=== PATIENT | male | born 1940 | race Caucasian/White ===

== ENCOUNTER 2021-07-10 12:51 | Day surgery (SDC) | payer MEDICARE, OTHER, SELFPAY ==
--- NOTE | 2021-07-10 13:00 | US_ITS ---
PROCEDURE: US KIDNEY CLINICAL INDICATION: N28.9 - Disorder of kidney and ureter, unspecified COMPARISON: No exams were available for comparison FINDINGS: The right kidney raises the 0.5 x 5.1 x 6.0 cm thinnest made volume of 135.93 mm. The left kidney measures 0.0 x 5.1 x 4.5 cm with estimated volume of 130.65 mm. There is mild bilateral renal cortical thinning. There is no hydronephrosis of either kidney. There is symmetrical vascularity to each kidney. There is a tiny benign-appearing exophytic cyst lower pole left measuring 1.0 by 2.3 x 1.1 cm. The spleen appears normal. A single image of the gallbladder shows no obvious abnormality IMPRESSION: Mild bilateral renal cortical thinning with no obstructive uropathy of either kidney Dictated by: Dr. Александр Hickey MD 07/10/2021 14:40 Dr. Александр Hickey MD in [place] 07/10/2021 14:40
--- NOTE | 2021-07-10 13:00 | US_ITS ---
PROCEDURE: US URINARY BLADDER CLINICAL INDICATION: difficulty urinating COMPARISON: No exams were available for comparison FINDINGS: The filled urinary bladder measures 7.7 x 6.5 x 6.5 cm with an estimated volume of 172 mL. The prostate is moderately enlarged measuring 4.2 by 3.2 x 4.5 cm shows prominent indentation and or mass-effect at the base of the urinary bladder. The postvoid bladder measures 6.6 x 4.7 x 5.9 cm with estimated volume of 95.2 mL. IMPRESSION: Moderately enlarged prostate protruding into the base of the urinary bladder with moderately large postvoid residual Dictated by: Dr. Александр Hickey MD 07/10/2021 14:43 Dr. Александр Hickey MD in [place] 07/10/2021 14:43
[2021-07-10 13:13] VITALS: BMI 27.9
--- NOTE | 2021-07-10 13:22 | CA_ITS ---
APPROVED REPORT EXAM: Comprehensive 2D, Doppler, and color-flow Echocardiogram Pharmaceutical Representative: Debi Garg RT(R) Ht: 5 ft 10 in Wt: 194lbs BSA: 2.06 BP: 131/68 mmHg Indications: syncope, HTN, FATIMA, stage III kidney disease 2D Dimensions Aortic Root 1.87 cm M: 3.1 - 3.7 LA Volume 89.90 mL LA Volume Index 43.64 mL/m2 (M/F) 16-34 M-Mode Dimensions RVDd 3.90 cm (0.9-2.6) LA Diam 5.03 cm (1.9-4.0) LVDd 4.24 cm (3.5-5.7) Ao Diam 2.81 cm (2.0-3.7) LVDs 3.39 cm (3.5-5.7) IVSd 1.10 cm (0.6-1.1) PWd 1.15 cm (0.6-1.1) EF (Teich) 41.40% FS 20.00% EDV (Teich) 80.40 mL ESV (Teich) 47.10 mL LV Diastology E Decel Time 260.00 (160-240 msec) E/A Ratio 1.1 MED E' 5.80 (< 7 cm/sec) E'/MED E' Ratio 14.52 (>14) LAT E' 8.00 (<10 cm/sec) E/LAT E' Ratio 10.53 (>14) Mitral Valve MV E Max Sawyer. 84.00 (40-130 cm/s) MV A Velocity 76.00 (40-130 cm/s) E/A Ratio 1.12 MV Decel. Time 260.00 (160-240 ms) MV PHT 76.00 ms Left Ventricle Left atrium is mildly enlarged, left ventricle is normal size, mild concentric left ventricular hypertrophy, visually estimated ejection fraction 55% with no regional wall motion abnormality, grade 1 diastolic dysfunction seen without tissue Doppler evidence of raise left atrial pressure. Right Ventricle Right atrium and right ventricle are normal size and contractility. Aortic Valve Aortic valve is thickened and calcified without Doppler evidence of aortic stenosis or aortic insufficiency. Mitral Valve Mitral valve leaflets are minimally thickened, there is mild mitral regurgitation. Tricuspid Valve Tricuspid valve grossly normal, there is mild tricuspid regurgitation, tricuspid regurgitation jet velocity is inadequate for calculation of the right ventricular systolic pressure. Pulmonic Valve Pulmonic valve is poorly visualized. Great Vessels Aortic root is normal size. Inferior vena cava is not well visualized. Pericardium No significant pericardial effusion noted. Conclusion 1. Mildly enlarged left atrium, normal left ventricular size, mild concentric left ventricular hypertrophy, visually estimated ejection fraction 55% with no regional wall motion abnormality, grade 1 diastolic dysfunction seen without tissue Doppler evidence of raise left atrial pressure. 2. Mild mitral and tricuspid regurgitation. 3. No significant pericardial effusion noted. Electronically signed by : Tevin Peres MD 07/10/2021 19:36:10
[2021-07-10 14:20] VITALS: BP 134/74; PULSE 67; PULSE 70; RESP 18; TEMP 36.7; O2SAT 98
[2021-07-10 14:28] VITALS: BP 125/78; PULSE 76; RESP 18; O2SAT 98
[2021-07-10 14:30] VITALS: BP 148/81; PULSE 80; RESP 17; O2SAT 98
--- NOTE | 2021-07-10 14:34 | P.PCN_ITS ---
[facility] Loop Recorder Date: 07/10/21 Time: 14:34 Procedure Performed:: Implantation of loop recorder Indication:: Syncope Technique:: Patient was brought to the cardiac Automobile Radiator Mechanic. After informed consent obtained, 1% lidocaine with epinephrine was used to anesthetize the site along the left anterior aspect of the chest near the sternal border. Using the preformed scalpel, an incision was made and using the supplied preloaded apparatus, the lo op recorder was placed subcutaneously without difficulty. Following the deployment of the loop recorder interrogation of the device was performed to ensure appropriate voltage was being detected. Once this was verified, Steri- Strips were placed over the incision and the patient was prepped to discharge home. Patient tolerated the procedure well with minimal discomfort. Impression:: Successful implantation of loop recorder Serial Number:: [employer] model M301 LUX-DX Serial #[id number] Plan:: Routine postop care Follow-up in our office in 1 to 2 weeks.
== END 2021-07-10 14:38 | disposition home or self-care (01) ==
LOC: RAD 12:53
PROVIDERS: PCP Family Medicine; Visit Provider Internal Medicine
DX: R39.198 Other difficulties with micturition; R55 Syncope and collapse; N18.32 Chronic kidney disease, stage 3b; I10 Essential (primary) hypertension; Z79.899 Other long term (current) drug therapy
CPT/HCPCS: 33285; 76770; 76857; 93306

== ENCOUNTER → 2021-07-16 06:29 | Outpatient (CLI) | payer MEDICARE, OTHER, SELFPAY ==
--- NOTE | 2021-07-16 | CA_ITS ---
APPROVED REPORT Exam: Pharmacologic Technologist: Yoon Cramer, Ht: 5 ft 10 in Wt: 194 lbs BSA: 2.06 m2 HR: 68 bpm BP: 172/101 mmHg Indications: Syncope Medical History Medications: Asa, Labatlol, Levothyroxine, Silodosin Allergies: NKA Cardiac Risk Factors: HTN Stress Test Details Test: LEXISCAN HR Resting HR: 70 bpm Max Heart Rate (APMHR): 138.305121 bpm Max HR Achieved: 96 bpm Target HR (85% APMHR): 117.264201 bpm % of APMHR: 69.57 Recovery HR: 82 bpm BP Resting BP: 172/101 mmHg Max BP: 172/101 mmHg Recovery BP: 148.0/79.0 mmHg ECG Resting ECG: NSR, frequent PVC's & ventricular couplets, NS ST abns laterally Clinical Exercise duration: 04:05 min Highest Stage Achieved: Exercise capacity: 1.0 METs Stress ECG Conclusion Brief SOA, mild headache, and lightheadedness during peak infusion which resolved during recovery. No chest pain. Frequent PVC's , although their frequency seemed to diminish somewhat with increased HR from Lexiscan. Mild exaggeration of baseline abns in leads V5 & V6. Unremarkable Lexiscan stress. Images reported separately. Electronically signed by : Tevin Peres MD 07/16/2021 14:06:16
--- NOTE | 2021-07-16 06:30 | NM_ITS ---
APPROVED REPORT Exam: Nuclear Stress Test Indication: short of breath..syncope..fatique Patient Location: Outpatient Stress Tech: Yoon Cramer MT Tech:VAZQUEZ Roper RT(R)(N) Ht: 5 ft 10 in Wt: 195 lbs HR: 68 bpm BP: 172/101 mmHg BSA: 2.07 m2 BMI: 27.9 History: short of breath..syncope..fatique Procedure: Patient received a 0.4 mg of intravenous Lexiscan, resting heart rate 68 bpm, resting blood pressure 172/101 mmHg, with Lexiscan maximum heart rate achived was 87 bpm which is Less than 85 % of the maximum predicted heart rate and blood pressure was 159/73 mmHg. With Lexiscan, patient denied any complaint of chest pain. Electrocardiogram Resting electrocardiogram showed sinus rhythm, with Lexiscan there is less than 1.[address] segment depression noted from the baseline EKG. The EKG portion of the Lexiscan Myoview is nondiagnostic. Cardiac Stress and Resting SPECT Images: Cardiac Stress and Resting SPECT images were obtained using technetium 99m Myoview 30.8 mCi stress and 10.47 mCi at rest. Gated SPECT for analysis of segmental wall motion and calculation of the ejection fraction also done. Prone images were also obtained. Cardiac stress and resting SPECT images show decreased tracer activity in the anterolateral, inferior apical and inferoseptal wall which improves on the resting images suggestive of reversible ischemia, computer derived ejection fraction is 39% with left ventricular global hypokinesis, right ventricle is normal size and contractility. Conclusion: 1. The EKG portion of the Lexiscan Myoview is nondiagnostic. 2. Scintigraphic evidence of reversible ischemia involving the anterolateral, inferior apical and inferoseptal wall, computer derived ejection fraction 39% with left ventricular global hypokinesis, right ventricle is normal size and contractility. 3. Abnormal Lexiscan Myoview study. Electronically signed by : Tevin Peres MD 07/16/2021 14:16:17
== END ==
PROVIDERS: PCP Family Medicine; Visit Provider Internal Medicine
DX: R06.00 Dyspnea, unspecified (principal); R55 Syncope and collapse
CPT/HCPCS: 78452; 93017; A9502; J2785

== ENCOUNTER → 2021-07-23 11:09 | Outpatient (CLI) | payer MEDICARE, OTHER, SELFPAY ==
[2021-07-23 12:14] LABS: Prostate Specific Ag Screen 3.4 ng/ml (0.0-4.0)
== END ==
PROVIDERS: Visit Provider Urology
DX: Z12.5 Encounter for screening for malignant neoplasm of prostate (principal)
CPT/HCPCS: 36415; G0103

== ENCOUNTER 2021-07-27 08:25 | Day surgery (SDC) | payer MEDICARE, OTHER, SELFPAY ==
[2021-07-27] VITALS (12 sets, daily range): BP systolic 148–174; BP diastolic 78–97; PULSE 48–66; RESP 18–20; TEMP 36.6–36.7; O2SAT 96–100; BMI 28.1
--- NOTE | 2021-07-27 07:09 | IR_ITS ---
APPROVED REPORT Patient Location: Outpatient Information Security Risk Analyst: VAZQUEZ Daniels RT (R) PROCEDURES Left heart catheterization Left ventriculogram Selective coronary angiogram Drug-eluting stent deployment to the circumflex artery Informed consent was obtained prior to the procedure. COMPLICATIONS None Estimated Blood Loss: Less than 10 mls TECHNIQUE One percent lidocaine used to anesthetize the right anterior aspect of the wrist. The right radial artery was accessed via the Seldinger technique. A 6 Czech sheath was placed in the right radial artery. 2.5 mg of verapamil, 800 mcg of nitroglycerin, 1mg Lidocaine and 5000 U Heparin were given through the arterial sheath. The trap catheter was also used to perform left heart catheterization, left ventriculogram and selective coronary angiogram. At the end the diagnostic angiogram the Poppa catheter was used to intubate the left main artery. Therapeutic heparin was administered giving a therapeutic ACT and a Choice PT extra-support wire was placed distally in the circumflex artery. A 2.5 x 18 mm resolute Ramirez stent was deployed at 16 timur reducing the critical stenosis to 0%. RILEY-3 flow was present before and after the procedure. At the end of the procedure the apparatus was removed the sheath was removed good hemostasis was achieved using TR banding patient was transferred to the postop putting in stable condition ANGIOGRAPHIC RESULTS The left main artery Normal The left anterior descending artery Has proximal and mid vessel diffuse 20 to 30% stenoses The circumflex artery Is codominant and gives rise to 2 large obtuse marginal arteries. The second obtuse marginal artery has a proximal concentric 90% stenosis The right coronary artery Is codominant and has a proximal concentric 30% stenosis The JAVED ventriculogram reveals Normal 65% The left ventricular end-diastolic pressure 15 mmHg IMPRESSION Severe single-vessel coronary disease as described above Successful stenting of a large second obtuse marginal artery severe disease reduced to 0% with 1 drug-eluting stent Normal ejection fraction Mildly elevated LVEDP PLAN 1. Dual antiplatelet therapy 2. Risk factor modification 3. LDL less than 55 4. Cardiac rehabilitation 5. Avoidance of tobacco products Electronically signed by : Deshawn Wright MD 07/27/2021 11:24:09
[2021-07-27 08:41] LABS: Coronavirus 19, PCR Not Detected (NotDetected); Influenza A, PCR Not Detected (NotDetected); Influenza B, PCR Not Detected (NotDetected)
[2021-07-27 09:23] LABS: Basophils # 0.1 K/mm3 (0-0.2); Basophils % 0.9 % (0.1-2.0); Eosinophils # 0.3 K/mm3 (0.0-0.4); Eosinophils % 4.6 % (0.1-12.0); Hematocrit 42.6 % (42.0-52.0); Hemoglobin 14.2 g/dL (14.1-18.0); Lymphocytes # 1.4 K/mm3 (0.7-4.5); Mean Corpuscular HGB Conc 33.3 g/dL (31.8-35.4); Mean Corpuscular Hemoglobin 30.6 pg (27.0-31.2); Mean Corpuscular Volume 91.7 fl (80-94); Mean Platelet Volume 8.3 fl (7.4-10.4); Monocytes # 0.5 K/mm3 (0.1-1.0); Monocytes % 8.2 % (1.7-9.3); Neutrophils # 3.5 K/mm3 (1.8-7.8); Neutrophils % 62.2 % (37.0-80.0); Platelet Count 190 K/mm3 (142-424); Red Blood Count 4.65 M/mm3 (4.60-6.20); Red Cell Distribution Width 13.6 % (11.5-17.5); White Blood Count 5.6 K/mm3 (4.8-10.8)
[2021-07-27 09:28] LABS: Chloride 108 mmol/L (98-107)
[2021-07-27 09:29] LABS: Potassium 4.2 mmoL/L (3.5-5.1); Sodium 141 mmol/L (136-145)
[2021-07-27 09:31] LABS: Blood Urea Nitrogen 26 mg/dl (9-20); Creatinine Clearance Estimated 40 mL/min (50-200); Estimated Glomerular Filt Rate 36 ml/min (>60); GFR (African American) 44 ML/MIN (>60)
[2021-07-27 09:32] LABS: Anion Gap 12.2 mEq/L (5-15); Calcium 8.6 mg/dl (8.4-10.2); Carbon Dioxide 25 mmol/L (22.0-30.0); Glucose 94 mg/dl (74-100)
[2021-07-27 13:55] LABS: CATHL Activated Clotting Time 311 SEC (74-125)
--- NOTE | 2021-07-27 14:34 | HMH.PHACLD ---
Akira Thomas has received discharge medication counseling on the following medications: PATIENT IS CURRENTLY TAKING ATORVASTATIN 40 MG HS, ASPIRIN 81 DR DAILY, METOPROLOL SUCCINATE 100 MG DAILY. MD ADDING BRILINTA 90 MG BID. MD NOT STARTING AISLINN OR ARB DUE TO KIDNEY FUNCTION.
== END 2021-07-27 15:01 | disposition home or self-care (01) ==
LOC: CATHLAB 08:27
PROVIDERS: PCP Family Medicine; Visit Provider Internal Medicine
DX: I25.118 Atherosclerotic heart disease of native coronary artery with other forms of angina pectoris (principal); I49.3 Ventricular premature depolarization; I48.91 Unspecified atrial fibrillation; I12.9 Hypertensive chronic kidney disease with stage 1 through stage 4 chronic kidney disease, or unspecified chronic kidney disease; N18.32 Chronic kidney disease, stage 3b; N40.0 Benign prostatic hyperplasia without lower urinary tract symptoms; R06.00 Dyspnea, unspecified; R42 Dizziness and giddiness; R94.31 Abnormal electrocardiogram [ECG] [EKG]; R94.39 Abnormal result of other cardiovascular function study; Z79.899 Other long term (current) drug therapy; Z20.822 Contact with and (suspected) exposure to COVID-19; E03.9 Hypothyroidism, unspecified; R55 Syncope and collapse
CPT/HCPCS: 80048; 85025; 85347; 92928; 93458; 99152; C1725; C1769; C1876; C9600; C9803; J1644; Q9967; U0003; U0005

== ENCOUNTER → 2021-07-31 08:19 | Outpatient (CLI) | payer MEDICARE, OTHER, SELFPAY ==
[2021-07-31 08:48] LABS: Coronavirus 19, PCR Not Detected (NotDetected); Influenza A, PCR Not Detected (NotDetected); Influenza B, PCR Not Detected (NotDetected)
== END ==
PROVIDERS: Visit Provider Urology
DX: Z20.822 Contact with and (suspected) exposure to COVID-19 (principal)
CPT/HCPCS: C9803; U0003; U0005

== ENCOUNTER 2021-07-31 08:39 | Day surgery (SDC) | payer MEDICARE, OTHER, SELFPAY ==
[2021-07-29 13:28] VITALS: BMI 28.1
[2021-07-31 09:23] VITALS: BP 154/73; PULSE 48; RESP 16; TEMP 36.6; O2SAT 96
[2021-07-31 10:10] VITALS: BP 161/75; PULSE 51; RESP 18; TEMP 36.6; O2SAT 95
[2021-07-31 10:20] VITALS: BP 161/75; PULSE 51; RESP 18; O2SAT 95
--- NOTE | 2021-07-31 12:42 | HMH.OPNOTE ---
Date of procedure: 07/31/21 Pre-op Diagnosis:: Lower urinary tract symptoms Post-op Diagnosis:: BPH Procedure performed:: Cystoscopy Surgeon:: Brendan Dominguez MD Anesthesia: local Estimated blood loss (mL): 0 Clinical Note:: 80-year-old white male with urinary slowing, straining to urinate with an IPSS score of 25 presents for cystoscopic evaluation. He has a history of TURP several years ago. Operative findings:: Patient with prostatic adenoma emanating from the median lobe projecting into the lumen of the prostatic urethra. Operative note:: Patient taken to the cystoscopy suite after informed consent was obtained. On the stretcher he was prepped and draped in the standard surgical fashion and 2% lidocaine placed into the urethra. After 5 minutes the flexible cystoscope introduced into the urethral meatus. Passed to the prostatic urethra which showed a large adenoma projecting from the 5:00 to 8 o'clock position projecting into the lumen of the prostatic urethra. The bladder was entered and examined in a systematic fashion. There was no evidence of trabeculation, cellules, diverticula or stones. The ureteral orifices in their normal anatomic position with clear efflux of urine. Scope was retroflexed showing the prostatic adenoma projecting into the bladder a bit. The scope then removed. The patient tolerated procedure well there are no complications. We discussed the findings and that transurethral resection would be the ideal management option but he underwent coronary stent placement earlier this week and is now on blood thinners with Brilinta and aspirin. We discussed that we would need to wait until he was able to go off of his blood thinner for a few days before we were able to offer a TURP. Typically the sweating. Is that a year. Condition: stable Disposition: same day Specimens:: None Complications:: None
== END 2021-07-31 10:20 | disposition home or self-care (01) ==
LOC: OUTP 08:41
PROVIDERS: PCP Family Medicine; Visit Provider Urology
DX: N40.1 Benign prostatic hyperplasia with lower urinary tract symptoms (principal); R33.9 Retention of urine, unspecified; Z90.79 Acquired absence of other genital organ(s); I48.91 Unspecified atrial fibrillation; I10 Essential (primary) hypertension; M19.90 Unspecified osteoarthritis, unspecified site; Z79.82 Long term (current) use of aspirin; Z79.899 Other long term (current) drug therapy; Z82.3 Family history of stroke; Z82.49 Family history of ischemic heart disease and other diseases of the circulatory system
CPT/HCPCS: 52000; C9803; U0003; U0005

== ENCOUNTER 2021-08-04 11:53 | Day surgery (SDC) | payer MEDICARE, OTHER, SELFPAY ==
[2021-08-04] VITALS (8 sets, daily range): BP systolic 127–163; BP diastolic 68–100; PULSE 55–77; RESP 13–18; TEMP 36.9; O2SAT 95–100; BMI 27.9
--- NOTE | 2021-08-04 07:11 | IR_ITS ---
APPROVED REPORT Patient Location: Outpatient Customer Training Specialist: VAZQUEZ Alvarez RT (R) PROCEDURES 1. Pocket formation for Permanent Pacemaker Placement. 2. Placement of an atrial sensing and pacing coil into the right atrial appendage. 3. Placement of a ventricular sensing and pacing coil in the right ventricular apex. 4. Permanent Pacemaker Placement. 5. Loop Record removed. INDICATION Symptomatic Bradycardia Informed consent was obtained prior to the procedure. COMPLICATIONS None Estimated Blood Loss: less than 10 ml TECHNIQUE 1% Lidocaine with epinephrine used to anesthetized the left anterior aspect of the chest. Scalpel was used to make the initial cutaneous incision while electrocautery was used to dissect down tinto the fascia. The fascia was lifted off the pectoralis muscle and digitally manipulated creating a pocket for the pacemaker. The patient was then placed in Trendelenburg position and the subclavian vein was accessed twice via the Selinger technique, there are two wires in the vein. A 6 Nigerian sheath was placed under fluoroscopic guidance into the subclavian vein over one of the wires while keeping the other wire in place within the subclavian vein. The dilator was removed from the sheath. Using fluoroscopic guidance, the ventricular lead was placed into the right ventricular apex, screwed and secured into place. Electronic interrogation proved acceptable thresholds and voltage within the lead. Using 3-0 silk, the ventricular lead was then secured into place. Lead was secured to the facia using the 3-0 silk. Following this, the sheath was pealed away. An additional 6 Nigerian fresh sheath and dilator was placed over the existing wire. Using fluoroscopic guidance, the atrial lead was the placed into the right atrial appendage and screwed and secured in place. Electrical interrogation demonstrated acceptable thresholds and voltage number. The atrial lead was then secured into place using 3-0 silk. 1 gram of Ancef was used to flush the pocket. Following the pacemaker generator being secured to the fascia and in place, Monocryl was used to close the subcutaneous layers while augustus were used to close the cutaneous layer. At the end of the procedure a scalpel was used to make a cutaneous incisoin to remove the loop record. Once loop record was removed, augustus was used to close the cutaneous layer. A pressure dressing was placed at both sites and the patient was transferred to the postop holding area in stable condition for postoperative care. INTERROGATION Generator Model number: ControlScanPope DR IS-1 L311 Generator Serial number: [id number] Atrial lead model number: Ingevity +IS-1 Bi Positive Fix RA/RV 52 cm 7841 Atrial lead serial number: [id number] P-wave: 3.0 mV Impedence: 650 Ohms Threshold: 0.7V@0.4ms Current: 1.1 mA Right Ventricular lead model number: Ingevity +1IS-1 Bi Positive Fix RA/RV 59 cm 7842 Right Ventricular lead serial number: [id number] R-wave: 20.0 mV Impedence: 950 Ohms Threshold: 1.0V@0.4ms Current: 1.1 mA Pacing Parameters: Mode: DDDR Base/Max Track: 60 ppm/130 ppm No diaphragmatic stimulation at 10 volts. IMPRESSION 1. Successful Pocket formation for Permanent Pacemaker Placement. 2. Successful Placement of an atrial sensing and pacing coil into the right atrial appendage. 3. Successful Placement of a ventricular sensing and pacing coil in the right ventricular apex. 4. Successful Permanent Pacemaker Placement. 5. Successful loop record removed. PLAN 1. Post Op Wound Care. Electronically signed by : Deshawn Wright MD 08/06/2021 14:49:38
[2021-08-04 12:41] LABS: Coronavirus 19, PCR Not Detected (NotDetected); Influenza A, PCR Not Detected (NotDetected)
[2021-08-04 12:48] LABS: Basophils # 0.1 K/mm3 (0-0.2); Basophils % 0.8 % (0.1-2.0); Eosinophils # 0.2 K/mm3 (0.0-0.4); Hematocrit 46.3 % (42.0-52.0); Lymphocytes # 1.4 K/mm3 (0.7-4.5); Lymphocytes % 21.3 % (10-50); Mean Corpuscular HGB Conc 32.4 g/dL (31.8-35.4); Mean Corpuscular Hemoglobin 30.1 pg (27.0-31.2); Mean Corpuscular Volume 93.1 fl (80-94); Mean Platelet Volume 9.2 fl (7.4-10.4); Monocytes # 0.5 K/mm3 (0.1-1.0); Monocytes % 7.2 % (1.7-9.3); Neutrophils # 4.5 K/mm3 (1.8-7.8); Neutrophils % 67.7 % (37.0-80.0); Platelet Count 203 K/mm3 (142-424); Red Blood Count 4.98 M/mm3 (4.60-6.20); Red Cell Distribution Width 14.2 % (11.5-17.5); White Blood Count 6.7 K/mm3 (4.8-10.8)
[2021-08-04 13:00] LABS: Chloride 107 mmol/L (98-107)
[2021-08-04 13:01] LABS: Potassium 4.4 mmoL/L (3.5-5.1); Sodium 141 mmol/L (136-145)
[2021-08-04 13:03] LABS: Blood Urea Nitrogen 29 mg/dl (9-20)
[2021-08-04 13:04] LABS: Anion Gap 12.4 mEq/L (5-15); Carbon Dioxide 26 mmol/L (22.0-30.0); Creatinine Clearance Estimated 45 mL/min (50-200); Estimated Glomerular Filt Rate 42 ml/min (>60); GFR (African American) 50 ML/MIN (>60); Glucose 92 mg/dl (74-100)
[2021-08-04 13:25] LABS: Influenza B, PCR Not Detected (NotDetected)
--- NOTE | 2021-08-04 16:12 | HMH.ANESCL ---
[facility] Anesthesia Checklist - Patient Identification Patient Identification: Arm Band - Structural Data Admitted From: Home Planned Operative Procedure/s: Dual Chamber Pacemaker Consent for Planned Operative Procedure(s) Verified: Yes Verified Documents: Surgical Consent, History and Physical - NPO Status Verified Time NPO: 00:00 - Additional verifications Anesthesia Reactions: No - Airway Assessment C-Spine Mobility Assessed: Yes (mp2) TMJ Mobility Assessed: Yes Dentition: Good Dentition - Neurological Assessment Level of Consciousness: Awake, Alert - Anesthesia Plan Anesthesia Risk discussed: Yes Anesthesia Plan: Verified ASA Class: III Anesthesia Type: MAC [facility] History I have reviewed the patient's past medical history: Yes Medical History: Reports:: Atrial Fibrillation, Coronary Artery Disease, Gastroesophageal Reflux Disease(GERD), Hypertension Denies:: Cancer, Diabetes Mellitus Type 1, Diabetes Mellitus Type 2, Internal Pacemaker, MRSA, Seizures *Have you ever received a pneumonia vaccine?: No *Have you received a flu vaccine this season?: No Other Medical History: Reports: Arthritis Anesthesia experience/problems:: nac Other Surgeries: Yes: Cardiac Catheterization, Colonoscopy, Coronary Stent. No: Pacemaker Amputation: No Fractures: No - *Social History Last grade of school completed: Advanced degree Smoking Status: Never smoker Alcohol Intake: never Substance Use Type: denies use *Occupational Status:: retired Housing: house Household Members: spouse *Travel in the last 8 weeks: None Family Hx:: Stroke, Hypertension
--- NOTE | 2021-08-04 16:42 | XR_ITS ---
PROCEDURE INFORMATION: Exam: XR Chest Exam date and time: 08/04/2021 4:42 PM Age: 80 years old Clinical indication: Device placement; Cardiac pacemaker placement or adjustment; Prior surgery; Surgery date: Post-operative (0-2 days); Additional info: Confirm pacemaker/aid placement TECHNIQUE: Imaging protocol: XR of the chest. Views: 1 view. COMPARISON: XA CL PACEMAKER DEFIBRILATOR 08/04/2021 7:11 AM FINDINGS: Tubes, catheters and devices: Dual lead pacemaker appears unremarkable. No pneumothorax. Lungs: Unremarkable. No consolidation. Pleural spaces: See Tubes, catheters and devices finding. Heart/Mediastinum: Mildly enlarged heart. Bones/joints: Unremarkable. IMPRESSION: Dual lead pacemaker appears unremarkable. No pneumothorax.
== END 2021-08-04 17:35 | disposition home or self-care (01) ==
LOC: CATHLAB 11:54
PROVIDERS: PCP Family Medicine; Visit Provider Internal Medicine
DX: I49.5 Sick sinus syndrome (principal); I25.10 Atherosclerotic heart disease of native coronary artery without angina pectoris; R94.31 Abnormal electrocardiogram [ECG] [EKG]; Z95.5 Presence of coronary angioplasty implant and graft; Z79.899 Other long term (current) drug therapy; I48.0 Paroxysmal atrial fibrillation; Z20.822 Contact with and (suspected) exposure to COVID-19
CPT/HCPCS: 33208; 71045; 80048; 85025; C1785; C1898; C9803; J2704; U0003; U0005

== ENCOUNTER 2021-08-10 17:28 | Emergency (ER) | payer MEDICARE, OTHER, SELFPAY ==
--- NOTE | 2021-08-10 17:42 | ECG_ITS ---
APPROVED REPORT Exam: Resting ECG HR:76 bpm ECG Measurements Heart Rate 76 AXES NM 176 P QRSd 140 QRS 94 QT 418 T -77 QTc 470 Conclusion Demand pacemaker, interpretation is based on intrinsic rhythm Sinus rhythm with premature supraventricular complexes Abnormal ECG Electronically signed by : Trav Melendez MD 08/11/2021 10:53:13
[2021-08-10 17:49] VITALS: BP 154/89; PULSE 74; RESP 20; TEMP 37.2; O2SAT 98; BMI 24.4
--- NOTE | 2021-08-10 17:58 | XR_ITS ---
PROCEDURE INFORMATION: Exam: XR Chest Exam date and time: 08/10/2021 5:58 PM Age: 80 years old Clinical indication: Shortness of breath; Prior surgery; Surgery date: 3-7 days post-operative; Patient HX: SOA; Patient had pacemaker placement surgery 7 days ago; . Non-smoker TECHNIQUE: Imaging protocol: XR of the chest. Views: 2 views. Total images: 2 COMPARISON: CR XR CHEST PORTABLE 08/04/2021 4:46 PM FINDINGS: Tubes, catheters and devices: Cardiac pacemaker noted with skin augustus over the left upper chest suggesting recent placement. The atrial lead is unchanged. The ventricular lead has a somewhat curled configuration within the ventricle with the distal electrode projecting more to the right. This may simply relate to variation between systole and diastole, however if there is clinical suspicion for pacemaker malfunction, consider fluoroscopic assessment. Lungs: Question mild hyperexpansion and hyperlucency with mild diaphragmatic flattening suggesting possible COPD. Pulmonary vasculature grossly normal. No gross pulmonary infiltrates or edema pattern. Pleural spaces: No pleural effusion. No pneumothorax. Heart/Mediastinum: Heart size normal. No tracheal/mediastinal shift. Vasculature: Mild aortic ectasia/tortuosity and mild calcific atherosclerosis. Bones/joints: No acute osseous abnormalities are identified. IMPRESSION: 1. No pneumothorax. 2. Cardiac pacemaker again noted. The right ventricular lead configuration appears changed from 08/04/2021, and the distal electrode does not clearly project at the apex. This may be due to variation between systole and diastole, however consider cardiology consultation and possibly fluoroscopic assessment if there is clinical evidence of pacer malfunction. 3. Suspect COPD.
[2021-08-10 18:14] LABS: Basophils # 0.1 K/mm3 (0-0.2); Basophils % 1.2 % (0.1-2.0); Eosinophils # 0.3 K/mm3 (0.0-0.4); Eosinophils % 3.5 % (0.1-12.0); Hematocrit 42.1 % (42.0-52.0); Lymphocytes # 1.7 K/mm3 (0.7-4.5); Lymphocytes % 20.9 % (10-50); Mean Corpuscular HGB Conc 33.3 g/dL (31.8-35.4); Mean Corpuscular Hemoglobin 30.4 pg (27.0-31.2); Mean Corpuscular Volume 91.4 fl (80-94); Mean Platelet Volume 9.4 fl (7.4-10.4); Monocytes # 0.8 K/mm3 (0.1-1.0); Monocytes % 9.4 % (1.7-9.3); Neutrophils # 5.3 K/mm3 (1.8-7.8); Neutrophils % 64.9 % (37.0-80.0); Platelet Count 179 K/mm3 (142-424); Red Blood Count 4.61 M/mm3 (4.60-6.20); Red Cell Distribution Width 14.1 % (11.5-17.5); White Blood Count 8.1 K/mm3 (4.8-10.8)
[2021-08-10 18:21] LABS: Anion Gap 12.5 mEq/L (5-15); Blood Urea Nitrogen 29 mg/dl (9-20); Carbon Dioxide 23 mmol/L (22.0-30.0); Chloride 107 mmol/L (98-107); Creatinine Clearance Estimated 30 mL/min (50-200); Estimated Glomerular Filt Rate 30 ml/min (>60); GFR (African American) 37 ML/MIN (>60); Glucose 90 mg/dl (74-100); Potassium 4.5 mmoL/L (3.5-5.1); Sodium 138 mmol/L (136-145)
[2021-08-10 18:31] VITALS: BP 138/77; PULSE 67; RESP 18; O2SAT 99
--- NOTE | 2021-08-10 18:42 | HMH.EDGENADL ---
ED Disposition Clinical Impression: Dehydration, Elevated brain natriuretic peptide (BNP) level Disposition: Home, Self-Care Condition on Discharge: Good Additional Instructions: Maintain appointment Dr. Wright on Tuesday. Return to emergency part for chest pain, shortness of breath, fatigue, confusion. Referrals: Guanaco Lazaro [Primary Care Provider] - (1 to 2 days) Time of Disposition: 19:46 - Critical Care Critical Care Time: No Attestation: On 08/10/21, the high probability of a clinically significant, sudden or life threatening deterioration of the following system(s) required my full and direct attention, intervention and personal management. The time I documented below is in addition to time spent performing reported procedures but includes the following listed in this critical care notation. Medical Decision Making - Medical Records Medical records reviewed: Yes: I reviewed the patient's medical records. - Arturo Inquiry Pt receiving controlled substance: No Vital Signs: 08/10/21 17:49 Temperature 98.9 F Temperature Source Oral Pulse Rate [Left Radial] 74 Respiratory Rate 20 Blood Pressure [Right Arm] 154/89 H Blood Pressure Mean [Right Arm] 110 Blood Pressure Source [Right Arm] Automatic Cuff Blood Pressure Position [Right Arm] Sitting 02 Sat by Pulse Oximetry 98 Oxygen Delivery Method Room Air - Lab Data Lab results reviewed: Yes: I reviewed the patient's lab results. Lab Results 08/10/21 14:57: Troponin I < 0.01, NT-Pro-B Natriuret Pep 1720 H 08/10/21 17:47: WBC 8.1, RBC 4.61, Hgb 14.0 L, Hct 42.1, MCV 91.4, MCH 30.4, MCHC 33.3, RDW 14.1, Plt Count 179, MPV 9.4, Neut % (Auto) 64.9, Lymph % (Auto) 20.9, Mcduffie % (Auto) 9.4 H, Eos % (Auto) 3.5, Baso % (Auto) 1.2, Neut # (Auto) 5.3, Lymph # (Auto) 1.7, Mcduffie # (Auto) 0.8, Eos # (Auto) 0.3, Baso # (Auto) 0.1 08/10/21 17:47: Sodium 138, Potassium 4.5, Chloride 107, Carbon Dioxide 23, Anion Gap 12.5, BUN 29 H, Creatinine 2.10 H, Estimated Creat Clear 30, Estimated GFR 30 L, Est GFR ( Amer) 37 L, Glucose 90, Calcium 9.0 Result diagrams: 08/10/21 17:47 08/10/21 17:47 Orders (Tests/Meds): ED MEDICATIONS Generic Name Dose Route Start Last Admin Trade Name [place] PRN Reason Stop Dose Admin Sodium Chloride 1,000 mls @ 500 mls/hr 08/10/21 18:45 08/10/21 18:46 Sod Chlor 0.9% 1000ml Bag IV 09/09/21 18:44 500 mls/hr .Q2H GETACHEW Administration - Radiology Data #1 Image(s): Chest Image Reviewed: Yes I reviewed the patient's radiology results Preliminary Findings: Normal/NAD - ECG Data Tracing #1 I reviewed this ECG and interpreted as documented below: Demand pacemaker. 76 BPM ECG initial impression date: 08/10/21 ECG initial impression time: 17:47 Medical Decision Narrative: 80yo M evaluated for fatigue and shortness of breath. Patient no acute distress on initial evaluation. His vital signs are unremarkable. Heart rates in the 70s, O2 sats 99% on room air. Basic laboratories are unremarkable except for a creatinine of 2.1, and the patient is still pending a troponin and a BNP at this time. Case discussed with Dr. Wright who states patient has a normal EF and could tolerate a full liter bolus at this time. Plan is to rehydrate the patient and discharge him home. He has follow-up with Dr. Wright scheduled for Tuesday. Chest x-ray remarkable for possible COPD. Patient's troponin is nondetectable. His BNP is elevated over 1700 with no previous study for comparison. Patient's O2 saturation remains 98% on room air even after a liter of fluid as discussed with Dr. Wright. Given his O2 saturation, the patient is appropriate and stable for discharge home. I did ask him to call Dr. Wright tomorrow morning to see if Dr. Wright wanted any additional testing completed outpatient before the patient goes in for follow-up on Tuesday. Patient was agreeable. General Adult HPI - General Chief complaint: S
--- NOTE | 2021-08-10 18:46 | PC.NURSE ---
DR CAMPBELL PAGED
[2021-08-10 19:01] VITALS: BP 159/93; PULSE 69; RESP 15; O2SAT 98
[2021-08-10 19:11] LABS: NT Pro Brain Natriuretic Pep. 1720 pg/mL (0-450)
[2021-08-10 19:16] LABS: Troponin I < 0.01 ng/ml (0.00-0.034)
[2021-08-10 19:31] VITALS: BP 153/73; PULSE 69; RESP 15; O2SAT 99
[2021-08-10 19:48] VITALS: BP 153/73; PULSE 69; RESP 15; TEMP 37.2; O2SAT 99
== END 2021-08-10 19:50 | disposition home or self-care (01) ==
PROVIDERS: Emergency Provider Family Medicine; PCP Family Medicine
DX: E86.0 Dehydration (principal); R79.89 Other specified abnormal findings of blood chemistry; I48.0 Paroxysmal atrial fibrillation; K21.9 Gastro-esophageal reflux disease without esophagitis; I10 Essential (primary) hypertension; I25.10 Atherosclerotic heart disease of native coronary artery without angina pectoris; Z79.899 Other long term (current) drug therapy
CPT/HCPCS: 71046; 80048; 83880; 84484; 85025; 93005; 96365; 99283

== ENCOUNTER → 2021-09-23 11:57 | Outpatient (CLI) | payer MEDICARE, OTHER, SELFPAY ==
[2021-09-23 14:02] LABS: Chloride 108 mmol/L (98-107); Potassium 5.2 mmoL/L (3.5-5.1); Sodium 139 mmol/L (136-145)
[2021-09-23 14:05] LABS: Anion Gap 11.2 mEq/L (5-15); Blood Urea Nitrogen 30 mg/dl (9-20); Calcium 8.6 mg/dl (8.4-10.2); Carbon Dioxide 25 mmol/L (22.0-30.0); Estimated Glomerular Filt Rate 34 ml/min (>60); GFR (African American) 41 ML/MIN (>60); Glucose 93 mg/dl (74-100)
[2021-09-23 14:22] LABS: Hemoglobin A1C 5.4 % (4.0-6.0)
== END ==
PROVIDERS: Visit Provider Nurse Practitioner Family
DX: I25.10 Atherosclerotic heart disease of native coronary artery without angina pectoris (principal); I49.3 Ventricular premature depolarization; R94.31 Abnormal electrocardiogram [ECG] [EKG]; Z95.0 Presence of cardiac pacemaker; Z95.5 Presence of coronary angioplasty implant and graft; R20.0 Anesthesia of skin; R79.89 Other specified abnormal findings of blood chemistry
CPT/HCPCS: 36415; 80048; 83036

== ENCOUNTER → 2021-12-23 10:00 | Outpatient (CLI) | payer MEDICARE, OTHER, SELFPAY ==
--- NOTE | 2021-12-23 10:01 | CA_ITS ---
FINAL REPORT TECHNIQUE: Color Doppler, duplex Doppler and draper scale sonography of the bilateral neck arterial vasculature was performed. Velocities were measured in the carotid arteries. Stenosis evaluation based on the validated velocity criteria. CLINICAL HISTORY: bilateral finger tip numbness FINDINGS: The peak systolic velocity of the right common carotid artery is 87 cm/s. The peak systolic velocity of the right internal carotid artery is 134 cm/s and end diastolic velocity 44 cm/s. The ICA/CCA ratio is 3.06. A mild amount of plaque is present with mild intimal wall thickening. The right external carotid artery is patent. The right vertebral artery is patent with antegrade flow. The peak systolic velocity of the left common carotid artery is 82 cm/s. The peak systolic velocity of the left internal carotid artery is 89 cm/s and end diastolic velocity 35 cm/s. The ICA/CCA ratio is 1.4. A mild amount of plaque is present with mild intimal thickening. The left external carotid artery is patent.The left vertebral artery is patent with antegrade flow. IMPRESSION: Less than 50% bilateral carotid stenosis. Bilateral patent vertebral arteries with antegrade flow. Reviewed, Interpreted and Dictated by Sonido Mcmanus III, MD Transcribed by Shilpa Peters Authenticated by Sonido Mcmanus III, MD on 12/23/2021 12:03:[address] [facility]
== END ==
PROVIDERS: Visit Provider Urology
DX: E78.5 Hyperlipidemia, unspecified (principal); I10 Essential (primary) hypertension; I25.10 Atherosclerotic heart disease of native coronary artery without angina pectoris; R20.0 Anesthesia of skin; R94.31 Abnormal electrocardiogram [ECG] [EKG]; Z95.0 Presence of cardiac pacemaker; Z95.5 Presence of coronary angioplasty implant and graft
CPT/HCPCS: 93880

== ENCOUNTER → 2022-04-12 12:01 | Outpatient (CLI) | payer MEDICARE, OTHER, SELFPAY ==
[2022-04-12 12:26] LABS: Basophils # 0.1 K/mm3 (0-0.2); Basophils % 0.9 % (0.1-2.0); Eosinophils # 0.1 K/mm3 (0.0-0.4); Eosinophils % 0.8 % (0.1-12.0); Hematocrit 43.7 % (42.0-52.0); Lymphocytes # 1.4 K/mm3 (0.7-4.5); Lymphocytes % 18.7 % (10-50); Mean Corpuscular HGB Conc 32.1 g/dL (31.8-35.4); Mean Corpuscular Hemoglobin 30.1 pg (27.0-31.2); Mean Corpuscular Volume 93.8 fl (80-94); Mean Platelet Volume 9.3 fl (7.4-10.4); Monocytes # 0.5 K/mm3 (0.1-1.0); Monocytes % 6.7 % (1.7-9.3); Neutrophils # 5.3 K/mm3 (1.8-7.8); Neutrophils % 72.9 % (37.0-80.0); Platelet Count 179 K/mm3 (142-424); Red Blood Count 4.66 M/mm3 (4.60-6.20); Red Cell Distribution Width 14.9 % (11.5-17.5); White Blood Count 7.2 K/mm3 (4.8-10.8)
[2022-04-12 13:16] LABS: Anion Gap 9.3 mEq/L (5-15); Blood Urea Nitrogen 24 mg/dl (9-20); Calcium 8.7 mg/dl (8.4-10.2); Carbon Dioxide 27 mmol/L (22.0-30.0); Chloride 104 mmol/L (98-107); Estimated Glomerular Filt Rate 45 ml/min (>60); GFR (African American) 54 ML/MIN (>60); Glucose 102 mg/dl (74-100); Potassium 4.3 mmoL/L (3.5-5.1); Sodium 136 mmol/L (136-145)
== END ==
PROVIDERS: Nurse Practitioner Family; PCP Nurse Practitioner Family; Visit Provider Internal Medicine
DX: E78.5 Hyperlipidemia, unspecified (principal); I10 Essential (primary) hypertension; R20.0 Anesthesia of skin
CPT/HCPCS: 36415; 80048; 85025

== ENCOUNTER 2022-07-09 14:36 | Emergency (ER) | payer MEDICARE, OTHER, SELFPAY ==
[2022-07-09 14:37] VITALS: BP 117/72; PULSE 88; RESP 18; TEMP 36.7; O2SAT 97; BMI 27.9
--- NOTE | 2022-07-09 14:55 | ECG_ITS ---
APPROVED REPORT Exam: Resting ECG HR:82 bpm ECG Measurements Heart Rate 82 AXES ND 163 P 25 QRSd 80 QRS 1 QT 380 T 66 QTc 418 Conclusion ELECTRONIC ATRIAL PACEMAKER NONSPECIFIC T-WAVE ABNORMALITY ABNORMAL RHYTHM ECG UNCONFIRMED REPORT Electronically signed by : Trav Melendez MD 07/10/2022 16:25:19
--- NOTE | 2022-07-09 15:10 | HMH.EDGENADL ---
Discharge Plan Disposition Patient Disposition: Home, Self-Care Condition: Good Prescriptions Prescriptions: No Action levothyroxine 112 mcg capsule 112 mcg PO DAILY esomeprazole magnesium 40 mg capsule,delayed release(DR/EC) 40 mg PO DAILY metoprolol succinate 200 mg tablet extended release 24 hr 200 mg PO DAILY allopurinol 100 mg tablet 100 mg PO DAILY Label Comments: TAKE ONE (1) TABLET EVERY DAY BY ORAL ROUTE DIRECTED FOR 30 DAYS. clopidogrel [Plavix] 75 mg tablet 75 mg PO DAILY tamsulosin 0.4 mg capsule 0.4 mg PO DAILY Label Comments: TAKE 1 CAPSULE BY MOUTH EVERY DAY 1/2 HOUR BEFORE SAME MEAL Referrals Follow up/Referrals: Guanaco Lazaro [Primary Care Provider] - See instructions Activity Restrictions/Add. Instructions Additional Instructions/Restrictions: See Dr. Wright in the office on Tuesday07/13/2022 at 9 AM. Additional instructions for SHORTNESS OF BREATH: See your physician as soon as possible for further evaluation. Return immediately if worsening shortness of breath or if vomiting, chest pain, fever, coughing of blood, or passing out. Clinical Impressions Clinical Impression: FATIMA (dyspnea on exertion) Instructions Patient Instructions: DI for Shortness of Breath Discharge ED Provider: Akira Gastelum General Adult HPI General Chief complaint: Shortness of Breath/Dyspnea Stated complaint: SOA Time Seen by Provider: 07/09/22 15:11 Mode of Arrival: Ambulatory Source of Information: Patient Limitations: No Limitations Description of Symptoms (Recalled from ER Triage Doc. by RN): PT WITH C/O INCREASED SHORTNESS OF BREATH WITH EXERTION. STATES I THINK IT'S MY HEART DIAGNOSED WITH COVID ABOUT 2 WEEKS AGO, REPORTS COUGH. History of Present Illness HPI narrative: Complains of dyspnea on exertion for 1 month. States he has no shortness of breath at rest. States that he thinks it is his heart, therefore he went to the cardiology office here today to try to see Dr. Wright. However when he arrived he was informed that everybody had already left for the day and was directed to come to the emergency room. Denies any chest pain. No leg swelling. No orthopnea or paroxysmal nocturnal dyspnea. He was recently diagnosed with COVID 2 weeks ago and has had a cough, low-grade fever, body aches, sore throat. States all COVID symptoms have improved markedly. States that he was having shortness of breath of exertion long before he contracted COVID. He says that Dr. Wright put a pacemaker in him about 6 months ago. Related Data Home Medications Medication Instructions Recorded Confirmed esomeprazole magnesium 40 mg 40 mg PO DAILY GERD 07/10/21 07/09/22 capsule,delayed release levothyroxine 112 mcg capsule 112 mcg PO DAILY thyroid disease 07/10/21 07/09/22 metoprolol succinate 200 mg 200 mg PO DAILY HEART RATE 12/23/21 07/09/22 tablet,extended release 24 hr allopurinol 100 mg tablet 100 mg PO DAILY GOUT 04/12/22 07/09/22 clopidogrel 75 mg tablet (Plavix) 75 mg PO DAILY Blood thinner 07/09/22 07/09/22 tamsulosin 0.4 mg capsule 0.4 mg PO DAILY PROSTATE 07/09/22 07/09/22 Allergies Allergy/AdvReac Type Severity Reaction Status Date / Time No Known Allergies Allergy Verified 04/12/22 13:05 [facility] Medical History (Updated 07/09/22 @ 16:48 by Akira Gastelum MD) Abnormal cardiovascular stress test Abnormal electrocardiography Atrial fibrillation Atypical angina Dizziness Dyspnea Enlarged prostate History of pacemaker PVC (premature ventricular contraction) Family History (Updated 07/09/22 @ 15:12 by Yudith Turner RN) Other No significant family history Social History (Updated 07/09/22 @ 15:13 by Yudith Turner RN) Smoking Status: Never smoker second hand exposure: No alcohol intake: never substance use type: denies use current occupational status: retired Travel in the last 8 weeks: [place]
--- NOTE | 2022-07-09 15:14 | XR_ITS ---
FINAL REPORT CLINICAL HISTORY: SOA COMPARISON: August 10, 2021 FINDINGS: Two views of the chest were obtained. There is a left subclavian pacemaker. The heart size and pulmonary vascularity are within normal limits. The mediastinum is normal. No acute pulmonary abnormality is identified. There is no pneumothorax. The bony thorax is intact. IMPRESSION: No active cardiopulmonary disease. Reviewed, Interpreted and Dictated by Sonido Mcmanus III, MD Transcribed by Andreas Perez Authenticated and [facility]
--- NOTE | 2022-07-09 15:14 | PC.NURSE ---
ED MD AT BEDSIDE
--- NOTE | 2022-07-09 15:20 | PC.NURSE ---
PT TO XR
--- NOTE | 2022-07-09 15:24 | PC.NURSE ---
PT RETURNED FROM XR
[2022-07-09 15:28] LABS: Basophils % 0.9 % (0.1-2.0); Chloride 107 mmol/L (98-107); Eosinophils # 0.1 K/mm3 (0.0-0.4); Eosinophils % 4.5 % (0.1-12.0); Hematocrit 40.2 % (42.0-52.0); Hemoglobin 12.8 g/dL (14.1-18.0); Lymphocytes % 32.2 % (10-50); Mean Corpuscular HGB Conc 31.8 g/dL (31.8-35.4); Mean Corpuscular Hemoglobin 29.3 pg (27.0-31.2); Mean Corpuscular Volume 92.4 fl (80-94); Mean Platelet Volume 9.4 fl (7.4-10.4); Monocytes # 0.2 K/mm3 (0.1-1.0); Monocytes % 7.4 % (1.7-9.3); Neutrophils # 1.7 K/mm3 (1.8-7.8); Neutrophils % 55.1 % (37.0-80.0); Platelet Count 155 K/mm3 (142-424); Potassium 3.8 mmoL/L (3.5-5.1); Red Blood Count 4.35 M/mm3 (4.60-6.20); Red Cell Distribution Width 14.5 % (11.5-17.5); Sodium 139 mmol/L (136-145); White Blood Count 3.2 K/mm3 (4.8-10.8)
[2022-07-09 15:30] VITALS: BP 125/74; PULSE 70; RESP 22; O2SAT 96
[2022-07-09 15:30] LABS: Blood Urea Nitrogen 16 mg/dl (9-20); Creatinine Clearance Estimated 47 mL/min (50-200); Estimated Glomerular Filt Rate 45 ml/min (>60); GFR (African American) 54 ML/MIN (>60)
[2022-07-09 15:31] LABS: Alanine Aminotransferase 25 U/L (12-78); Albumin Level 3.4 g/dl (3.5-5.0); Albumin/Globulin Ratio 1.2 (1.1-1.8); Alkaline Phosphatase 97 U/L (38-126); Anion Gap 10.8 mEq/L (5-15); Aspartate Amino Transferase 88 U/L (17-59); Bilirubin,Total 0.2 mg/dl (0.2-1.3); Calcium 8.6 mg/dl (8.4-10.2); Carbon Dioxide 25 mmol/L (22.0-30.0); Globulin 2.9 g/dL (1.3-3.2); Glucose 133 mg/dl (74-100); Total Protein,Serum 6.3 g/dl (6.3-8.2)
[2022-07-09 15:40] LABS: NT Pro Brain Natriuretic Pep. 3460 pg/mL (0-450)
[2022-07-09 15:43] LABS: Troponin I 0.03 ng/ml (0.00-0.034)
[2022-07-09 16:00] VITALS: BP 119/71; PULSE 70; RESP 25; O2SAT 95
[2022-07-09 16:30] VITALS: BP 135/77; PULSE 70; RESP 21; O2SAT 97
--- NOTE | 2022-07-09 16:30 | PC.NURSE ---
ROUNDED ON PT AT THIS TIME. RESTING WITH EYES CLOSED. NO NEEDS AT THIS TIME
--- NOTE | 2022-07-09 16:40 | PC.NURSE ---
ED MD AT BEDSIDE TO REEVALUATE PT
[2022-07-09 17:20] VITALS: BP 152/86; PULSE 73; RESP 20; TEMP 36.9; O2SAT 97
== END 2022-07-09 17:20 | disposition home or self-care (01) ==
PROVIDERS: Emergency Provider Emergency Medicine; PCP Family Medicine
DX: J02.9 Acute pharyngitis, unspecified (principal); R06.02 Shortness of breath; R94.31 Abnormal electrocardiogram [ECG] [EKG]; R94.39 Abnormal result of other cardiovascular function study; M79.10 Myalgia, unspecified site; R42 Dizziness and giddiness; I20.9 Angina pectoris, unspecified; I49.3 Ventricular premature depolarization; I48.91 Unspecified atrial fibrillation; I08.1 Rheumatic disorders of both mitral and tricuspid valves; N40.0 Benign prostatic hyperplasia without lower urinary tract symptoms; Z79.01 Long term (current) use of anticoagulants; Z79.02 Long term (current) use of antithrombotics/antiplatelets; Z79.899 Other long term (current) drug therapy; Z95.0 Presence of cardiac pacemaker
CPT/HCPCS: 71045; 80053; 83880; 84484; 85025; 93005; 99285

== ENCOUNTER → 2022-07-13 10:26 | Outpatient (CLI) | payer MEDICARE, OTHER, SELFPAY ==
--- NOTE | 2022-07-13 10:27 | CA_ITS ---
APPROVED REPORT EXAM: Comprehensive 2D, Doppler, and color-flow Echocardiogram Contemporary Or Modern Dancer: Celina Velasquez RVT Ht: 5 ft 10 in Wt: 194lbs BSA: 2.06 BP: 134/75 mmHg Indications: NEAR SYNCOPE,A-FIB,CAD,PACER,GERD,HX COVID,HTN,HLD 2D Dimensions LVOT 2.14 cm (M/F) 1.5-2.5 LA Volume 79.10 mL LA Volume Index 38.39 mL/m2 (M/F) 16-34 M-Mode Dimensions RVDd 4.52 cm (0.9-2.6) LA Diam 5.36 cm (1.9-4.0) LVDd 4.65 cm (3.5-5.7) Ao Diam 3.50 cm (2.0-3.7) LVDs 3.26 cm (3.5-5.7) IVSd 1.21 cm (0.6-1.1) PWd 1.39 cm (0.6-1.1) EF (Teich) 57.10% FS 29.90% EDV (Teich) 99.80 mL TAPSE 1.92 (<1.7) ESV (Teich) 42.80 mL LV Diastology E Decel Time 200.00 (160-240 msec) E/A Ratio 0.9 MED E' 3.60 (< 7 cm/sec) E'/MED E' Ratio 14.86 (>14) LAT E' 4.70 (<10 cm/sec) E/LAT E' Ratio 11.38 (>14) Aortic Valve AI PHT 1734.00 ms AO Peak GR. 6.30 mmHg Mitral Valve MV E Max Sawyer. 54.00 (40-130 cm/s) MV A Velocity 62.00 (40-130 cm/s) E/A Ratio 0.86 MV Decel. Time 200.00 (160-240 ms) MV PHT 59.00 ms Pulmonary Valve PV Peak Velocity 75.00 (50-150 cm/s) Tricuspid Valve TR P. Velocity 267.00 cm/s RAP Estimate 10.00 mmHg RVSP 38.40 mmHg Left Ventricle Left atrium is mildly enlarged, left ventricle normal size mild concentric left ventricular hypertrophy, estimated ejection fraction of 50% with no regional wall motion abnormality, diastolic parameters are inconclusive. Right Ventricle Right atrium and right ventricle are mildly enlarged with normal contractility, pacemaker leads in the right atrium and right ventricle. Aortic Valve Aortic valve is minimally thickened and calcified without aortic stenosis, there is mild aortic insufficiency. Mitral Valve Mitral valve has mitral calcification, leaflets are minimally thickened, there is no mitral stenosis, there is moderate mitral regurgitation. Tricuspid Valve Tricuspid valve grossly normal, there is mild tricuspid regurgitation, calculated right ventricular systolic pressure 38 mmHg. Pulmonic Valve Pulmonic valve is poorly visualized. Great Vessels Aortic root is normal size. Inferior vena cava is poorly visualized. Pericardium No significant pericardial effusion noted. Conclusion 1. Biatrial enlargement, normal left ventricular size, mild concentric left ventricular hypertrophy, estimated ejection fraction 50% with no regional wall motion abnormality, diastolic parameters are inconclusive. 2. Moderate mitral and mild tricuspid regurgitation, calculated right ventricular systolic pressure 38 mmHg. 3. Mild aortic insufficiency. 4. No significant pericardial effusion noted. 5. Inferior vena cava is poorly visualized. Electronically signed by : Tevin Peres MD 07/13/2022 19:29:43
== END ==
PROVIDERS: PCP Family Medicine; Visit Provider Nurse Practitioner
DX: E78.2 Mixed hyperlipidemia (principal); I10 Essential (primary) hypertension; I25.10 Atherosclerotic heart disease of native coronary artery without angina pectoris; I48.91 Unspecified atrial fibrillation; R06.09 Other forms of dyspnea; R55 Syncope and collapse; R94.31 Abnormal electrocardiogram [ECG] [EKG]; Z95.0 Presence of cardiac pacemaker; Z95.5 Presence of coronary angioplasty implant and graft
CPT/HCPCS: 93306